=== PATIENT | female | born 1960 | race Caucasian/White ===

== ENCOUNTER 2023-01-19 09:09 | Outpatient (CLI) | payer OTHER, MEDICAID | END 2023-01-19 09:10 | disposition home or self-care (01) | LOC: CSHRAD 09:09 | PROVIDERS: ATTEND Anesthesiology Pain Medicine | DX: Z95.0 Presence of cardiac pacemaker (principal) | CPT/HCPCS: 71046 ==

== ENCOUNTER 2023-01-20 08:38 | Outpatient (CLI) | payer OTHER, MEDICAID | END 2023-01-20 08:39 | disposition home or self-care (01) | LOC: CSHSPEC 08:38 | PROVIDERS: ATTEND Anesthesiology Pain Medicine | DX: M54.16 Radiculopathy, lumbar region (principal); M47.817 Spondylosis without myelopathy or radiculopathy, lumbosacral region | CPT/HCPCS: 72148 ==

== ENCOUNTER 2024-09-14 08:14 | Outpatient (CLI) | payer OTHER, MEDICAID | END 2024-09-14 08:15 | disposition home or self-care (01) | LOC: CSHSLEEP 08:14 | PROVIDERS: ATTEND Student in an Organized Health Care Education/Training Program | DX: G47.33 Obstructive sleep apnea (adult) (pediatric) (principal) | CPT/HCPCS: 95811 ==